=== PATIENT | female | born 1950 | race Caucasian/White ===

== ENCOUNTER 2019-07-25 07:30 | Emergency (ER) | payer MEDICARE, OTHER ==
[~2019-07-25] VITALS: Ht 154 cm; Wt 102.0 kg
[2019-07-25] MEDS ORDERED: ALLO300T2 (07:56)
[2019-07-25] MEDS ORDERED: MIDO10TA (07:56)
[2019-07-25] MEDS ORDERED: MIRT15TA6 (07:56)
[2019-07-25] MEDS ORDERED: SEVE800T13 (07:56)
[2019-07-25] MEDS ORDERED: APIX5TAB (07:56)
[2019-07-25] MEDS ORDERED: LEVO75TA6 (07:56)
[2019-07-25] MEDS ORDERED: CARV6.252 (07:56)
[2019-07-25] MEDS ORDERED: BUME2TAB7 (07:56)
[2019-07-25] MEDS ORDERED: METO2.5T (07:56)
[2019-07-25] MEDS ORDERED: SPIR50TA4 (07:56)
[2019-07-25] MEDS ORDERED: PRAV40TA2 (07:56)
[2019-07-25] MEDS ORDERED: GABA-486 (07:56)
[2019-07-25] MEDS ORDERED: APIX2.5T (07:56)
[2019-07-25] MEDS ORDERED: TRAM50TA2 (07:56)
[2019-07-25] MEDS ORDERED: ERGO50006 (07:56)
[2019-07-25] MEDS ORDERED: DOXY100C2 (07:56)
[2019-07-25] MEDS ORDERED: HYDROcodone/APAP 5 MG/325 MG (LORTAB) TAB PO ONE (08:00)
--- NOTE | 2019-07-25 08:24 | ED Lower Extremity ---
General Chief Complaint: Lower Extremity Stated Complaint: FALL Nursing Triage Note: PT PRESENTS TO ED WITH COMPLAINTS OF L KNEE PAIN AFTER FALLING TO HER KNEES WHEN SHE SLIPPED USING HER WALKER THIS AM. PT DENIES ANY OTHER INJURY OR HITTING HEAD. ABRASION NOTED TO L KNEE. Nursing Sepsis Screen: No Definite Risk Source: patient Exam Limitations: no limitations History of Present Illness Date Seen by Provider: Jul 25, 2019 Time Seen by Provider: 07:44 Initial Comments Here with complaint of left knee pain after falling today. Patient apparently was getting ready to go into dialysis and was using her walker to walk and when she tripped and fell to her knees. She landed on her left knee and has pain there. Denies falling fully to the ground because family member was assisting her and protected her. She did not hit her head. Does report arthritis to both knees and thinks that that part of the problem. No significant abrasions or lacerations but does have some bruising to the anterior left knee. She does do dialysis on Sunday, Sunday and Sunday. Onset: just prior to arrival (proximal 30 minutes ago) Severity: moderate Pain/Injury Location: left knee Method of Injury: direct blow, fell Modifying Factors: Improves With Immobilization; Worse With Movement; Improves With Rest Allergies and Home Medications Allergies Coded Allergies: Sulfa (Sulfonamide Antibiotics) (Verified Allergy, Unknown, 07/25/19) Uncoded Allergies: silk tape (Adverse Reaction, Intermediate, Rash, 07/25/19) Patient Home Medication List Home Medication List Reviewed: Yes Review of Systems Constitutional: see HPI; No chills, No fever Respiratory: no symptoms reported Cardiovascular: no symptoms reported Musculoskeletal: see HPI, joint pain, muscle pain Skin: change in color; No lesions Psychiatric/Neurological: No Symptoms Reported Past Ecertra-Hvmosf-Jknwiu Hx Past Med/Social Hx: Reviewed Nursing Past Med/Soc Hx Patient Social History Alcohol Use: Denies Use Recreational Drug Use: No Smoking Status: Never a Smoker Recent Foreign Travel: No Contact w/Someone Who Travel: No Recent Infectious Disease Expo: No Recent Hopitalizations: No Physical Abuse: No Sexual Abuse: No Mistreated: No Fear: No Seasonal Allergies Seasonal Allergies: No Past Medical History Surgeries: Yes (hernia repair, valve l side. ) Gallbladder, Hysterectomy, Pacemaker Respiratory: No Cardiac: Yes (CHF) Genitourinary: Yes Renal Failure, Dialysis Gastrointestinal: No Musculoskeletal: No Endocrine: Yes Diabetes, Non-Insulin dep Cancer: No Psychosocial: No Blood Disorders: No Family Medical History Reviewed Nursing Family Hx No Pertinent Family Hx Physical Exam Vital Signs Vital Signs - First Documented 07/25/19 07:46 Temp 36.6 Pulse 64 Resp 16 B/P (MAP) 113/52 (72) Pulse Ox 97 O2 Delivery Nasal Cannula O2 Flow Rate 2.00 Capillary Refill : Less Than 3 Seconds Height, Weight, BMI Height: '" Weight: lbs. oz. kg; 43.00 BMI Method: General Appearance: WD/WN, no apparent distress Cardiovascular: regular rate, rhythm, no murmur Respiratory: lungs clear, normal breath sounds Gastrointestinal: non tender, soft Legs: bilateral leg other (is stasis changes bilateral lower extremities as well as some chronic venous stasis wounds that are dressed.) Knees: right knee non-tender, right knee normal inspection; left knee ecchymosis, left knee joint effusion, left knee pain, left knee soft tissue tenderness, left knee other (tender about the anterior portion of the knee) Neurologic/Psychiatric: alert, oriented x 3 Skin: normal color, warm/dry Progress/Results/Core Measures Results/Orders My Orders Orders - ABDULLAHI TRAYLOR MD Knee, Left, 3 Views (07/25/19 07:50) Hydrocodone/Apap 5/325 Tablet (Lortab 5 (07/25/19 08:00) Medications Given in ED Current Medications Medications Dose Ordered Sig/Eliazar Route Start Time Stop Time Status Last Admin Dose Admin Acetaminophen/ Hydrocodone Bitart 1 tab ONCE ONCE PO 07/25/19 08:00 07/25/19 08:01 DC 07/25/19 08:16 1 TAB Vital Signs/I&O 07/25/19 07:46 Temp 36.6 Pulse 64 Resp 16 B/P (MAP) 113/52 (72) Pulse Ox 97 O2 Delivery Nasal Cannula O2 Flow Rate 2.00 Blood Pressure Mean: 72 Progress Progress Note : Progress Note Seen and evaluated. Hydrocodone 5/325 one tab by mouth given. X-ray left knee. Monitor patient. 0857: Pain improved. No acute fracture. Ice pack given. Tetanus updated. Discharged home with return precautions. Patient verbalize understanding instructions and agreement with plan. Okay for dialysis. Diagnostic Imaging Diagonstic Imaging: Xray Plain Films/CT/US/NM/MRI: knee Comments [facility] [place], [place] NAME: JIMMY MANNING [facility] REC#: [id number] PT STATUS: REG ER : 1950 PHYSICIAN: ABDULLAHI TRAYLOR MD ADMIT DATE: 07/25/19/ER Draft Date of Exam:07/25/19 KNEE, LEFT, 3 VIEWS EXAMINATION: Left knee radiographs, 3 views. COMPARISON: None. HISTORY: 69-year-old female, fall. FINDINGS: There is severe tricompartmental joint space loss. There is edyc-gt-jysp articulation in the lateral and patellofemoral compartments. There is some remodeling associated with the lateral compartment. There is no knee joint effusion. There is no identified acute fracture. There are vascular calcifications. There is no identified radiopaque foreign body. IMPRESSION: 1. No identified acute fracture or knee joint effusion. 2. Severe tricompartmental osteoarthritis. Dictated on workstation # [id number] Dict: 07/25/19818 Trans: 07/25/19 0847 [facility] [id number] Interpreted by: BECKA RUBY MD Electronically signed by: Departure Impression Primary Impression: Contusion of left knee Qualified Codes: S80.02XA - Contusion of left knee, initial encounter Additional Impression: Osteoarthritis of left knee Qualified Codes: M17.12 - Unilateral primary osteoarthritis, left knee Disposition: 01 HOME, SELF-CARE Condition: Stable Departure-Patient Inst. Decision time for Depature: 08:58 Patient Instructions: Contusion (DC), Osteoarthritis (DC) Add. Discharge Instructions: All discharge instructions reviewed with patient and/or family. Voiced understanding. Use ice packs 20 minutes per hour as needed to reduce swelling and pain to the left knee. You may continue your tramadol for pain. You may add Tylenol/acetaminophen 1000 mg every 8 hours as needed for pain as well. Follow- up with your in a few days for recheck. Continue to use her walker. Return for worse pain, swelling, weakness, breathing problems or other concerns as needed. You are okay for dialysis today. ABDULLAHI TRAYLOR MD Jul 25, 2019 08:24
--- NOTE | 2019-07-25 08:48 | Diagnostic Imaging Report ---
EXAMINATION: Left knee radiographs, 3 views. COMPARISON: None. HISTORY: 69-year-old female, fall. FINDINGS: There is severe tricompartmental joint space loss. There is pvhb-kt-gser articulation in the lateral and patellofemoral compartments. There is some remodeling associated with the lateral compartment. There is no knee joint effusion. There is no identified acute fracture. There are vascular calcifications. There is no identified radiopaque foreign body. IMPRESSION: 1. No identified acute fracture or knee joint effusion. 2. Severe tricompartmental osteoarthritis. Dictated by: Dictated on workstation # [id number]
[2019-07-25] MEDS ORDERED: TETANUS,DIPTH,PERTUSS P/F (BOOSTRIX) 0.5 ML VIAL IM ONE (09:00)
[2019-07-25 09:14] VITALS: BP 115/65
== END 2019-07-25 09:14 | disposition home or self-care (01) ==
LOC: EDUNIT# 07:30 → ER 07:32
DX: S80.02XA Contusion of left knee, initial encounter (principal); M17.12 Unilateral primary osteoarthritis, left knee; I50.9 Heart failure, unspecified; E11.9 Type 2 diabetes mellitus without complications; Z99.2 Dependence on renal dialysis; Z95.0 Presence of cardiac pacemaker; Z90.710 Acquired absence of both cervix and uterus; Z88.2 Allergy status to sulfonamides; Z88.8 Allergy status to other drugs, medicaments and biological substances; W01.0XXA Fall on same level from slipping, tripping and stumbling without subsequent striking against object, initial encounter; W22.8XXA Striking against or struck by other objects, initial encounter
CPT/HCPCS: 73562; 90715

== ENCOUNTER 2020-10-30 08:35 | Emergency (ER) | payer MEDICARE, OTHER ==
[~2020-10-30] VITALS: Ht 157.5 cm; Wt 87.5 kg
[~2020-10-30 08:35] MED LIST: ALLO300T2; APIX2.5T; APIX5TAB; BUME2TAB7; CARV6.252; DOXY100C2; ERGO50006; GABA-486; LEVO75TA6; METO2.5T; MIDO10TA; MIRT15TA6; PRAV40TA2; SEVE800T13; SPIR50TA4; TRM50T
[2020-10-30 08:40] VITALS: BP 113/54
--- NOTE | 2020-10-30 09:01 | ED Integumentary General ---
General Chief Complaint: Skin/Wound Problems Stated Complaint: RT LEG LACERATION Source: patient Exam Limitations: no limitations History of Present Illness Date Seen by Provider: Oct 30, 2020 Time Seen by Provider: 08:57 Initial Comments Patient is a 70-year-old female who presents to the emergency department today with a chief complaint of laceration to her right lower leg. Patient states that she was transferring from her wheelchair into the car and caught her leg in the car door. Patient suffered a skin tear to the distal portion of her right lower extremity. She denies any complaints of pain other than at the site of the wound. No injuries reported. Patient was going to dialysis this morning. No recent complaints of fevers, chills cough or other illness. All other review of systems reviewed and negative except as stated. Timing/Duration: just prior to arrival Severity: mild Location: extremities Possible Cause: other Allergies and Home Medications Allergies Coded Allergies: Sulfa (Sulfonamide Antibiotics) (Verified Allergy, Unknown, 07/25/19) Uncoded Allergies: silk tape (Adverse Reaction, Intermediate, Rash, 07/25/19) Patient Home Medication List Home Medication List Reviewed: Yes Review of Systems Review of Systems Constitutional: no symptoms reported EENTM: no symptoms reported Respiratory: no symptoms reported Cardiovascular: no symptoms reported Gastrointestinal: no symptoms reported Genitourinary: no symptoms reported Musculoskeletal: no symptoms reported Skin: other (Laceration right leg) All Other Systems Reviewed Negative Unless Noted: Yes Past Ncuxmgp-Cvxdfu-Ljefwg Hx Patient Social History Alcohol Use: Denies Use Recreational Drug Use: No Smoking Status: Never a Smoker 2nd Hand Smoke Exposure: No Recent Foreign Travel: No Contact w/Someone Who Travel: No Recent Hopitalizations: No Physical Abuse: No Sexual Abuse: No Mistreated: No Fear: No Seasonal Allergies Seasonal Allergies: No Past Medical History Surgeries: Yes (hernia repair, valve l side. ) Gallbladder, Hysterectomy, Pacemaker Respiratory: No Cardiac: Yes (CHF) Genitourinary: Yes Renal Failure, Dialysis Gastrointestinal: No Musculoskeletal: No Endocrine: Yes Diabetes, Non-Insulin dep Cancer: No Psychosocial: No Blood Disorders: No Family Medical History No Pertinent Family Hx Physical Exam Vital Signs Vital Signs - First Documented 10/30/20 08:40 Temp 36.4 Pulse 81 Resp 24 B/P (MAP) 113/54 (73) Pulse Ox 100 O2 Delivery Room Air Capillary Refill : General Appearance: WD/WN, no apparent distress Cardiovascular: regular rate, rhythm, systolic murmur, gallop/S3 Respiratory: lungs clear, normal breath sounds, no respiratory distress Gastrointestinal: normal bowel sounds, non tender, soft Neurologic/Psychiatric: alert, normal mood/affect, oriented x 3 Skin: warm/dry, other (Four centimeter triangular skin tear noted to the lateral side of the right lower leg; no active bleeding; skin flap is adhered to the base of the wound; wound appears clean) Skin Problem Location: lower extremities Progress/Results/Core Measures Results/Orders Vital Signs/I&O 10/30/20 08:40 Temp 36.4 Pulse 81 Resp 24 B/P (MAP) 113/54 (73) Pulse Ox 100 O2 Delivery Room Air Departure Impression Primary Impression: Skin tear of left lower leg without complication Qualified Codes: S81.812A - Laceration without foreign body, left lower leg, initial encounter Disposition: HOME, SELF-CARE Condition: Stable Departure-Patient Inst. Decision time for Depature: 09:12 Referrals: CLAIRE TOBIN MD ,LOCAL PHYSICIAN (PCP) Primary Care Physician Patient Instructions: Wound Care Add. Discharge Instructions: Keep the wound clean dry and covered. You can put a nonstick dressing over the skin tear and then cover it with a dry gauze dressing. Clean the wound once daily. I have given you referral information for Dr. Tobin who runs the wound care clinic. Please call his office on Sunday morning for a follow-up appointment regarding the skin wound Return to the emergency room for any increased pain, bleeding from the wound that does not stop or other emergent concerning symptoms ESME PATEL MD Oct 30, 2020 09:01
== END 2020-10-30 09:34 | disposition home or self-care (01) ==
LOC: EDUNIT# 08:35 → ER 08:42
DX: S81.812A Laceration without foreign body, left lower leg, initial encounter (principal); Z88.2 Allergy status to sulfonamides; Z95.0 Presence of cardiac pacemaker; W23.1XXA Caught, crushed, jammed, or pinched between stationary objects, initial encounter

== ENCOUNTER 2021-01-01 09:22 | Emergency (ER) | payer MEDICARE, OTHER ==
[~2021-01-01] VITALS: Ht 160 cm; Wt 87.7 kg
[2021-01-01] MEDS ORDERED: OXYMETAZOLINE (AFRIN) 0.05% NA 30 ML BTL ONE (09:25)
[2021-01-01] MEDS ORDERED: NS IV 500 ML 500 ML ONE (09:31)
[2021-01-01] MEDS ORDERED: OXYMETAZOLINE (AFRIN) 0.05% NA 30 ML BTL STA (09:35)
--- NOTE | 2021-01-01 09:42 | ED EENT ---
History of Present Illness General Stated Complaint: NOSE BLEED Source: patient Exam Limitations: no limitations History of Present Illness Date Seen by Provider: Jan 01, 2021 Time Seen by Provider: 09:25 Initial Comments Patient [facility] for nosebleed that started around breakfast time approximately 2 hours prior to arrival. She says she had a nosebleed from midnight to 2:00 this morning as well. She is on Eliquis for atrial fibrillation. She is also on dialysis. She does not have frequent nosebleeds until the last week or 2. She does not use any nasal sprays for any reason. She denies sticking anything in her nose. She has not had any trauma or falls. Been applying pressure and says she has also swallowed some blood but is not having any nausea. A week and a half ago she had to get 2 units of packed red blood cells for anemia. She is having no chest pain or shortness of air. The patient typically wears 4 L oxygen. Patient claims that her blood pressure usually runs in the 90s systolic. Allergies and Home Medications Allergies Coded Allergies: Sulfa (Sulfonamide Antibiotics) (Verified Allergy, Unknown, 07/25/19) Uncoded Allergies: silk tape (Adverse Reaction, Intermediate, Rash, 07/25/19) Patient Home Medication List Home Medication List Reviewed: Yes Review of Systems Review of Systems Constitutional: No chills, No diaphoresis Eyes: Denies Blindness, Denies Blurred Vision Ears: Denies Dizziness, Denies Pain Nose: see HPI, clots; denies congestion; epistaxis Mouth: denies clots, denies pain, denies swelling Throat: denies pain, denies swelling Respiratory: No cough, No short of breath Cardiovascular: No chest pain, No edema All Other Systems Reviewed Negative Unless Noted: Yes Past Sqaquyp-Gzlogf-Mmgklu Hx Patient Social History Alcohol Use: Denies Use Smoking Status: Never a Smoker 2nd Hand Smoke Exposure: No Recent Hopitalizations: No Seasonal Allergies Seasonal Allergies: No Past Medical History Surgeries: Yes (hernia repair, valve l side. ) Gallbladder, Hysterectomy, Pacemaker Respiratory: No Cardiac: Yes (CHF) Genitourinary: Yes Renal Failure, Dialysis Gastrointestinal: No Musculoskeletal: No Endocrine: Yes Diabetes, Non-Insulin dep Cancer: No Psychosocial: No Blood Disorders: No Family Medical History No Pertinent Family Hx Physical Exam Vital Signs Vital Signs - First Documented 01/01/21 09:28 Temp 36.2 Pulse 102 Resp 11 B/P (MAP) 83/52 (62) Pulse Ox 93 O2 Delivery Room Air Height, Weight, BMI Height: '" Weight: lbs. oz. kg; 35.00 BMI Method: General Appearance: WD/WN, moderate distress Eyes: right eye other (Serosanguineous secretions from the right eye); left eye normal inspection; bilateral eye PERRL, bilateral eye EOMI Ears: bilateral ear auricle normal, bilateral ear canal normal, bilateral ear TM normal Nose: other (Large blood clot in the right nare with slow thin bloody serous secretions.) Mouth/Throat: other (Blood clots) Neck: non-tender, full range of motion, normal inspection Cardiovascular: normal peripheral pulses, regular rate, rhythm, tachycardia, other (Soft blood pressure 80/44) Respiratory: no accessory muscle use, respiratory distress (Mild, chronic with oxygen sats 92% on room air.) Progress/Results/Core Measures Results/Orders Lab Results Laboratory Tests Test 01/01/21 09:35 Range/Units White Blood Count 12.7 H 4.3-11.0 10^3/uL Red Blood Count 2.57 L 3.80-5.11 10^6/uL Hemoglobin 8.4 L 11.5-16.0 g/dL Hematocrit 27 L 35-52 % Mean Corpuscular Volume 105 H 80-99 fL Mean Corpuscular Hemoglobin 33 25-34 pg Mean Corpuscular Hemoglobin Concent 31 L 32-36 g/dL Red Cell Distribution Width 19.6 H 10.0-14.5 % Platelet Count 192 130-400 10^3/uL Mean Platelet Volume 12.1 9.0-12.2 fL Immature Granulocyte % (Auto) 2 % Neutrophils (%) (Auto) 69 42-75 % Lymphocytes (%) (Auto) 19 12-44 % Monocytes (%) (Auto) 9 0-12 % Eosinophils (%) (Auto) 1 0-10 % Basophils (%) (Auto) 1 0-10 % Neutrophils # (Auto) 8.7 H 1.8-7.8 10^3/uL Lymphocytes # (Auto) 2.4 1.0-4.0 10^3/uL Monocytes # (Auto) 1.1 H 0.0-1.0 10^3/uL Eosinophils # (Auto) 0.2 0.0-0.3 10^3/uL Basophils # (Auto) 0.1 0.0-0.1 10^3/uL Immature Granulocyte # (Auto) 0.2 H 0.0-0.1 10^3/uL Sodium Level 135 135-145 MMOL/L Potassium Level 4.3 3.6-5.0 MMOL/L Chloride Level 92 L 98-107 MMOL/L Carbon Dioxide Level 24 21-32 MMOL/L Anion Gap 19 H 5-14 MMOL/L Blood Urea Nitrogen 57 H 7-18 MG/DL Creatinine 5.67 H 0.60-1.30 MG/DL Estimat Glomerular Filtration Rate 7 BUN/Creatinine Ratio 10 Glucose Level 243 H 70-105 MG/DL Calcium Level 8.8 8.5-10.1 MG/DL Corrected Calcium 8.7 8.5-10.1 MG/DL Total Bilirubin 0.8 0.1-1.0 MG/DL Aspartate Amino Transf (AST/SGOT) 22 5-34 U/L Alanine Aminotransferase (ALT/SGPT) 16 0-55 U/L Alkaline Phosphatase 191 H 40-136 U/L Total Protein 7.3 6.4-8.2 GM/DL Albumin 4.1 3.2-4.5 GM/DL My Orders Orders - LUCA STARR Oxymetazoline 0.05% Nasal [place] (Afrin 0. (01/01/21 09:25) Ed Iv/Invasive Line Start (01/01/21 09:35) Ns Iv 500 Ml (Sodium Chloride 0.9%) (01/01/21 09:45) Cbc With Automated Diff (01/01/21 09:35) Comprehensive Metabolic Panel (01/01/21 09:35) Type And Screen (01/01/21 09:35) Oxymetazoline 0.05% Nasal [place] (Afrin 0. (01/01/21 09:35) Ns Iv 500 Ml (Sodium Chloride 0.9%) (01/01/21 09:31) Medications Given in ED Current Medications Medications Dose Ordered Sig/Eliazar Route Start Time Stop Time Status Last Admin Dose Admin Sodium Chloride 500 ml @ 0 mls/hr Q0M ONCE IV 01/01/21 09:45 01/01/21 09:46 DC 01/01/21 09:36 0 MLS/HR Vital Signs/I&O 01/01/21 09:28 Temp 36.2 Pulse 102 Resp 11 B/P (MAP) 83/52 (62) Pulse Ox 93 O2 Delivery Room Air Progress Progress Note #1: Time: 09:40 Progress Note Put her on 4 L by oxygen mask and gave her a couple puffs of oxymetazoline as well as put pressure on the nose. We did some suctioning but it was not easy to see immediately where the bleeding is coming from. She does have a soft blood pressure so saline bolus was initiated. We have typed and screened her and will plan to give red blood cells as necessary. Progress Note #2: Time: 10:36 Progress Note Clamp was removed and the patient's bleeding has already stopped. We gave her the Afrin and will allow her to follow outpatient. Return precautions given. Patient will have repeat labs Sunday with her dialysis to recheck her hemoglobin. 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 Decision time for Depature: 10:37 Referrals: NO,LOCAL PHYSICIAN (PCP/Family) Primary Care Physician Patient Instructions: Nosebleeds (DC) Add. Discharge Instructions: Do not put anything in your nose, rub your nose blow your nose or even attempt to breathe through your nose for now. Spit out any bloody secretions. Drink and eat otherwise as normal. If you have repeat episode of bloody nose then in a upright seated position apply 2-3 pumps of oxymetazoline in both nostrils and placed the clamp securely across your nose. Hold this for 40 minutes. Return to the ER if you are still bleeding despite this or if you have other worrisome symptoms such as chest pain, shortness of air. Do not use your nasal cannula until the bleeding has resolved. Use an oxygen mask at the same settings as provided. Make sure you have a humidifier in line with your oxygen. Scripts Oxymetazoline HCl (Afrin) 15 Ml Mist 15 ML NS Q4H PRN for epistaxis for 7 Days, #1 EA 0 Refills Prov: LUCA STARR 01/01/21 LUCA STARR Jan 01, 2021 09:42
[2021-01-01 09:44] LABS: BASOPHILS # (AUTO) 0.1 10^3/uL (0.0-0.1); BASOPHILS % (AUTO) 1 % (0-10); EOSINOPHILS # (AUTO) 0.2 10^3/uL (0.0-0.3); EOSINOPHILS % (AUTO) 1 % (0-10); HEMATOCRIT 27 % (35-52); HEMOGLOBIN 8.4 g/dL (11.5-16.0); LYMPHOCYTES # (AUTO) 2.4 10^3/uL (1.0-4.0); LYMPHOCYTES % (AUTO) 19 % (12-44); MEAN CORPUSCULAR HEMOGLOBIN 33 pg (25-34); MEAN CORPUSCULAR HGB CONC 31 g/dL (32-36); MEAN CORPUSCULAR VOLUME 105 fL (80-99); MEAN PLATELET VOLUME 12.1 fL (9.0-12.2); MONOCYTES # (AUTO) 1.1 10^3/uL (0.0-1.0); MONOCYTES % (AUTO) 9 % (0-12); NEUTROPHILS # (AUTO) 8.7 10^3/uL (1.8-7.8); NEUTROPHILS % (AUTO) 69 % (42-75); PLATELET COUNT 192 10^3/uL (130-400); WHITE BLOOD COUNT 12.7 10^3/uL (4.3-11.0)
[2021-01-01] MEDS ORDERED: NS IV 500 ML 500 ML IV ONE (09:45)
[2021-01-01 09:55] LABS: ALBUMIN 4.1 GM/DL (3.2-4.5); POTASSIUM 4.3 MMOL/L (3.6-5.0)
[2021-01-01 09:57] LABS: CALCIUM 8.8 MG/DL (8.5-10.1)
[2021-01-01 09:58] LABS: TOTAL PROTEIN 7.3 GM/DL (6.4-8.2)
[2021-01-01 09:59] LABS: BILIRUBIN,TOTAL 0.8 MG/DL (0.1-1.0)
[2021-01-01 10:01] LABS: CREATININE SERUM 5.67 MG/DL (0.60-1.30)
[2021-01-01] MEDS ORDERED: OXYM15MI4 NS (10:39)
[2021-01-01 10:55] VITALS: BP 102/87
== END 2021-01-01 11:02 | disposition home or self-care (01) ==
LOC: EDUNIT# 09:22 → ER 09:24
DX: R04.0 Epistaxis (principal); I48.91 Unspecified atrial fibrillation; Z88.2 Allergy status to sulfonamides; Z79.01 Long term (current) use of anticoagulants
CPT/HCPCS: 36415; 80053; 85025; 86850; 86900; 86901